=== PATIENT | male | born 1985 | race Caucasian/White ===

== ENCOUNTER 2019-11-03 14:46 | Emergency (ER) | payer OTHER ==
[~2019-11-03] VITALS: Ht 177.8 cm; Wt 83.9 kg
[2019-11-03] MEDS ORDERED: PREDNISONE 10 M10 MG PO (19:38)
[2019-11-03] MEDS ORDERED: NORCO 5-325 TA1 EAC2 PO (19:38)
[2019-11-03] MEDS ORDERED: NAPROSYN500 MG PO (19:38)
[2019-11-03] MEDS ORDERED: NORFLEX100 MG PO (19:38)
[2019-11-03 21:37] VITALS: BP 107/59
== END 2019-11-03 21:23 | disposition home or self-care (01) ==
LOC: ER 14:46
DX: S39.012A Strain of muscle, fascia and tendon of lower back, initial encounter (principal); Z90.89 Acquired absence of other organs; X50.1XXA Overexertion from prolonged static or awkward postures, initial encounter; Y93.89 Activity, other specified; Y92.89 Other specified places as the place of occurrence of the external cause; Y99.8 Other external cause status